=== PATIENT | female | born 1955 | race Caucasian/White ===

== ENCOUNTER → 2020-05-29 | Outpatient (CLI) | payer BC | END | disposition home or self-care (01) | LOC: RAD 13:44 | PROVIDERS: ATTEND Nurse Practitioner | DX: M75.122 Complete rotator cuff tear or rupture of left shoulder, not specified as traumatic (principal); M75.52 Bursitis of left shoulder ==

== ENCOUNTER 2020-07-29 11:07 | Emergency (ER) | payer MEDICARE, BC ==
[~2020-07-29] VITALS: Ht 157.5 cm; Wt 110.0 kg
--- NOTE | 2020-07-29 11:43 | NUR ---
PT C/O OF NOT HAVING A BM FOR 8 DAYS WITH NAUSEA. HAD ROTATOR CUFF SURGERY ON July AND SAYS SHES TRIED STOOL SOFETNERS, ENEMAS, LOTS OF WATER, PRUNE JUICE AND NOTHING IS WORKING. PT NOTE TO HAVE NORMOACTIVE BOWEL SOUNDS AND PASSING GAS. C/O OF PAIN IN LLQ OF ABD. NO CHEST PAIN, SOB.
[2020-07-29] MEDS ORDERED: METHYLNALTREXONE 12 MG/0.6 ML SYR SQ ONE ×2 (12:00→12:45)
--- NOTE | 2020-07-29 12:00 | NUR ---
PT OFF UNIT IN IMAGING.
[2020-07-29 12:30] LABS: BASOPHILS % (AUTO) 1 % (0-1); EOSINOPHILS % (AUTO) 0 % (1-7); LYMPHOCYTES % (AUTO) 8 % (22-44); MEAN CORPUSCULAR HEMOGLOBIN 32.8 pg (27.0-34.8); MEAN CORPUSCULAR HGB CONC 34.1 g/dL (32.4-35.8); MEAN PLATELET VOLUME 7.4 fL (7.4-10.4); MONOCYTES % (AUTO) 4 % (2-9); NEUTROPHILS % (AUTO) 88 % (42-75); PLATELET COUNT 366 x10^3/uL (130-400); RED BLOOD COUNT 4.73 x10^6/uL (3.82-5.3); RED CELL DISTRIBUTION WIDTH 13.4 % (9.6-15.2)
[2020-07-29 12:31] LABS: MD NO
[2020-07-29 12:36] LABS: ALANINE AMINOTRANSFERASE 36 U/L (12-78); ALBUMIN 3.8 g/dL (3.4-5.0); ANION GAP 7 mmol/L (5-15); CALCIUM 9.1 mg/dL (8.5-10.1); CHLORIDE 104 mmol/L (98-107); CREATININE 0.81 mg/dL (0.55-1.02)
[2020-07-29 12:39] LABS: ALKALINE PHOSPHATASE 89 U/L (45-117); BILIRUBIN,TOTAL 0.6 mg/dL (0.2-1.0); TOTAL PROTEIN 8.3 g/dL (6.4-8.2)
[2020-07-29 13:09] LABS: MICROSCOPIC NOT IND
--- NOTE | 2020-07-29 13:09 | NUR ---
STRAIGHT CATHETER U/A COMPLETED. PT COULD NOT URINATE DUE T PAIN. [facility] ENEMA STARTED. PT TOLERATING WELL.
--- NOTE | 2020-07-29 13:20 | NUR ---
PT UP TO COMMODE ATTEMPTING TO HAVE A BM
--- NOTE | 2020-07-29 13:40 | NUR ---
PT ON COMMODE STATED THAT SHE IS FEELING BETTER. WANTED TO STAY ON COMMODE TO GET EVERYTHING OUT.
--- NOTE | 2020-07-29 13:51 | NUR ---
PT ON COMMODE. STATES SHE STILL HAS MORE COMING AND NEEDS MORE TIME. SISTER AT BEDSIDE WITH PT. CALL LIGHT IN REACH.
--- NOTE | 2020-07-29 14:09 | NUR ---
ENEMA WAS SUCCESSFUL. PT STATES FEELING A LOT BETTER. VSS. BROWN SOFT BM IN BEDSIDE COMMODE.
[2020-07-29 14:50] VITALS: BP 163/75
== END 2020-07-29 14:53 | disposition home or self-care (01) ==
LOC: ED 14:50
DX: K59.00 Constipation, unspecified (principal); K64.4 Residual hemorrhoidal skin tags; R10.84 Generalized abdominal pain
CPT/HCPCS: 36415; 74021; 80053; 81003; 85025; 96372; 99284